=== PATIENT | female | born 1950 | race Caucasian/White ===

== ENCOUNTER 2021-09-02 09:49 | Outpatient (RCR) | payer MEDICARE, BC | END 2021-12-01 | disposition home or self-care (01) | LOC: PT | DX: M54.31 Sciatica, right side (principal) ==

== ENCOUNTER → 2022-05-05 | Outpatient (CLI) | payer MEDICARE, BC | LOC: RAD 09:00 | DX: M16.11 Unilateral primary osteoarthritis, right hip (principal) ==

== ENCOUNTER → 2022-06-07 | Outpatient (CLI) | payer MEDICARE, BC | LOC: PT 13:25 | DX: M25.551 Pain in right hip (principal) ==

== ENCOUNTER 2022-06-16 11:03 | Outpatient (RCR) | payer MEDICARE, BC | END 2022-06-20 | disposition home or self-care (01) | LOC: PT | DX: Z96.641 Presence of right artificial hip joint (principal) ==

== ENCOUNTER 2022-06-22 07:48 | Outpatient (RCR) | payer MEDICARE, BC | END 2022-07-21 | disposition home or self-care (01) | LOC: PT | DX: Z96.641 Presence of right artificial hip joint (principal) ==